=== PATIENT | male | born 1995 | race African-American/Black ===

== ENCOUNTER 2017-04-01 19:45 | Emergency (ER) | payer OTHER ==
[2017-04-01 20:16] VITALS: BP 138/78; PULSE 64; TEMP 98.7; BMI 22.2
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
== END 2017-04-01 21:19 | disposition home or self-care (01) ==
LOC: JERFT 19:45
DX: S16.1XXA Strain of muscle, fascia and tendon at neck level, initial encounter (principal); S29.012A Strain of muscle and tendon of back wall of thorax, initial encounter; V49.59XA Passenger injured in collision with other motor vehicles in traffic accident, initial encounter; Y92.488 Other paved roadways as the place of occurrence of the external cause; Y93.89 Activity, other specified; Y99.8 Other external cause status
CPT/HCPCS: 99281-25